=== PATIENT | female | born 1980 | race Asian ===

== ENCOUNTER 2023-03-13 01:41 | Emergency (ER) | payer SELFPAY ==
[~2023-03-13] VITALS: Ht 162.6 cm; Wt 56.0 kg
[2023-03-13 01:43] VITALS: O2SAT 97
[2023-03-13] MEDS ORDERED: ONDANSETRON HCL 4MG/2ML INJ IV STA (03:18)
[2023-03-13] MEDS ORDERED: SODIUM CHLORIDE 0.9% 1,000 ML IV ONE (03:30)
[2023-03-13 03:41] LABS: HEMATOCRIT. 34.8 % (36.0-48.0); HEMOGLOBIN. 11.5 g/dL (12.0-16.0); MEAN CORPUSCULAR HEMOGLOBIN 28.4 pg (28.0-32.0); MEAN CORPUSCULAR HGB CONC 32.9 g/dL (31.0-37.0); MEAN CORPUSCULAR VOLUME 86.1 fL (81.0-99.0); MEAN PLATELET VOLUME 8.3 fl (7.4-10.4); PLATELET 403 x1000/uL (130-400); RED BLOOD CELL COUNT 4.04 mill/uL (4.2-5.4); RED CELL DISTRIBUTION WIDTH 14.7 % (11.6-14.6)
[2023-03-13 03:42] LABS: DIFFERENTIAL COMMENT 1
[2023-03-13 03:50] LABS: CHLORIDE 111 mEq/L (98-107); INDEX HEMOLYSI 4 (1-3); INDEX ICTERIC 1 (1-4); INDEX LIPEMIC 1 (1-3); SODIUM 140 mEq/L (136-145)
[2023-03-13 04:01] LABS: ALANINE AMINOTRANSFERASE 23 IU/L (13-61); ALBUMIN 3.5 g/dL (3.4-5.0); ASPARTATE AMINOTRANSFERASE 30 IU/L (15-37); BILIRUBIN TOTAL 0.6 mg/dL (0.1-1.0); CALCIUM 7.6 mg/dL (8.5-10.1); CARBON DIOXIDE 23 mEq/L (21-32); CREATININE 0.6 mg/dL (0.6-1.3); GLUCOSE 129 mg/dL (70-105); UREA NITROGEN BLOOD 8 mg/dL (7-21)
[2023-03-13 05:27] VITALS: BP 125/75; PULSE 77; RESP 16; TEMP 98.2
[2023-03-13 07:51] LABS: PLATELET ESTIMATE NORMAL
== END 2023-03-13 05:29 | disposition home or self-care (01) ==
LOC: ER 01:41
DX: F10.129 Alcohol abuse with intoxication, unspecified (principal); G43.909 Migraine, unspecified, not intractable, without status migrainosus; Y90.9 Presence of alcohol in blood, level not specified
CPT/HCPCS: 99283; 96374; 80053; 83690; 85025; 36415; J2405; J7030; 96365